=== PATIENT | female | born 1965 | race Caucasian/White ===

== ENCOUNTER 2019-11-02 07:33 | Outpatient (CLI) | payer BC, SELFPAY ==
--- NOTE | ~2019-11-02 | MM_ITS ---
EXAMINATION: MM screening john BI w teresa HISTORY: Screening mammogram TECHNIQUE: Craniocaudal and mediolateral oblique 3-D tomosynthesis images were obtained and synthetic 2-D images were generated. CAD analysis was submitted and interpreted. COMPARISON: Comparison to multiple prior studies sequentially, with oldest reviewed study dated 03/2014. BREAST PARENCHYMAL COMPOSITION: The breasts are heterogeneously dense, which may obscure small masses . FINDINGS: There is no evidence of suspicious mass, calcification, or architectural distortion to sugg est malignancy in either breast. There has been no suspicious interval change. IMPRESSION: 1. No mammographic evidence of malignancy. 2. Recommend routine screening mammography in one year. BI-RADS Category 1: Negative Reviewed, dictated and finalized at location A.
== END 2019-11-02 07:34 | disposition home or self-care (01) ==
DX: Z12.31 Encounter for screening mammogram for malignant neoplasm of breast (principal)
CPT/HCPCS: 77063; 77067

== ENCOUNTER 2022-10-17 09:20 | Emergency (ER) | payer BC, SELFPAY ==
[2022-10-17 09:45] VITALS: BP 130/89; PULSE 93; RESP 16; TEMP 36.8; O2SAT 100
--- NOTE | 2022-10-17 09:55 | ED.URI ---
HPI - URI/Sore Throat General Chief Complaint: Upper Respiratory Infection Stated Complaint: SORE THROAT/COLD Time Seen by Provider: 10/17/22 09:55 Source: patient Mode of arrival: ambulatory Limitations: no limitations History of Present Illness HPI Narrative: 57-year-old female presents with complaint of nasal congestion, sinus pressure and congestion for 3 weeks. Is not taking any [id number] medications to treat her symptoms. Reports the last 3 days she has had sore throat, fatigue and body aches. Afebrile. Denies nausea vomiting diarrhea. No chest pain or shortness of breath. All systems reviewed and negative except as noted above. Related Data Allergies Allergy/AdvReac Type Severity Reaction Status Date / Time No Known Allergies Allergy Verified 10/17/22 09:37 Review of Systems Review of Systems: CONSTITUTIONAL: Denies fever, chills, or sweats. Reports fatigue. EYES: Denies visual changes, redness, or discharge. ENT: Reports rhinorrhea, congestion,, sinus pressure sore throat. Denies otalgia. CARDIOVASCULAR: Denies chest pain, palpitations, or edema. RESPIRATORY: Denies cough or dyspnea. GASTROINTESTINAL: Denies abdominal pain, nausea, vomiting, or diarrhea. GENITOURINARY: Denies dysuria or hematuria. SKIN: Denies rash or itching. MUSCULOSKELETAL: Denies back pain, joint pain. Reports myalgia. NEUROLOGIC: Denies headache, numbness, or weakness. PSYCHIATRIC: Denies anxiety or depression. All other systems reviewed are negative, except as documented in HPI. PMFSH Past Medical History Medical History (Updated 10/17/22 @ 10:03 by Shannan Sanchez NP) Vaginal delivery Surgical History Surgical History (Updated 12/01/19 @ 14:24 by Mona Law CMA) History of hysterectomy Family History Family History (Updated 12/19/17 @ 14:36 by DOCTOR UNKNOWN) Mother Hypertension Grandparent Carcinoma of colon Family history of malignant neoplasm of breast Other Family history of arthritis Family history of malignant neoplasm Social History Social History Smoking status: Never smoker Second hand tobacco smoke exposure: No Alcohol intake: current Comments At time of signature, agree with nursing past medical, surgical, social and family history. There is no relevant family history pertinent to the presenting complaint. Exam Narrative: GENERAL: This is a well-nourished, well-developed patient, in no apparent distress. HEAD: normocephalic, atraumatic. EYES: PERRL. Sclera clear/white. Vision is grossly intact. EARS: External ears normal, auditory canals clear and without drainage, TMs normal without perforation. Hearing grossly intact. NOSE: External nose normal with prelim nasal drainage, moderate congestion, frontal and maxillary sinus tenderness. THROAT: Mucous membranes moist, erythema and postnasal drainage. NECK: Neck supple, non-tender without lymphadenopathy, masses or thyromegaly. CARDIOVASCULAR: Regular rate and rhythm without murmurs, gallops, or rubs. RESPIRATORY: Clear to auscultation. Breath sounds equal bilaterally. No wheezes, rales, or rhonchi. SKIN: warm, Dry, intact with no suspicious lesions or rash, good texture and turgor. NEURO: awake, alert, and oriented to person, place and time. There were no obvious focal neurologic abnormalities. EXTREMITIES: No joint tenderness, effusion, or edema noted. Course Course Level of Care: Express Care Visit Vital Signs Vital signs: Vital Signs Temperature 36.8 C 10/17/22 09:45 Pulse Rate 93 10/17/22 09:45 Respiratory Rate 16 10/17/22 09:45 Blood Pressure 130/89 10/17/22 09:45 Pulse Oximetry 100 10/17/22 09:45 Temperature 36.8 C 10/17/22 09:45 Pulse Rate 93 10/17/22 09:45 Respiratory Rate 16 10/17/22 09:45 Blood Pressure 130/89 10/17/22 09:45 Pulse Oximetry 100 10/17/22 09:45 Reviewed MDM - URI/Sore Throat MDM Narrative Medical decision making narrative: Patient i
== END 2022-10-17 10:08 | disposition home or self-care (01) ==
PROVIDERS: Emergency Provider Nurse Practitioner Family
DX: J01.90 Acute sinusitis, unspecified (principal); B96.89 Other specified bacterial agents as the cause of diseases classified elsewhere
CPT/HCPCS: 87081; 87880; 99213; G0463

== ENCOUNTER 2024-08-31 14:59 | Outpatient (CLI) | payer BC, SELFPAY ==
--- NOTE | ~2024-08-31 | MM_ITS ---
EXAMINATION: MM screening john BI w teresa HISTORY: Screening mammogram TECHNIQUE: Craniocaudal and mediolateral oblique 3-D tomosynthesis images were obtained and synthetic 2-D images were generated. CAD analysis was submitted and interpreted. COMPARISON: 11/02/2019 BREAST PARENCHYMAL COMPOSITION:Dense: The breasts are extremely dense, which lowers the sensitivity o f mammography. FINDINGS: No suspicious mass, calcification, or architectural distortion are identified in either lg ast to suggest malignancy. There has been no suspicious interval change. IMPRESSION: No mammographic evidence of malignancy. Recommend routine screening mammography in one year. BI-RADS Category 1: Negative Reviewed, dictated and finalized at location M. 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
== END 2024-08-31 15:00 | disposition home or self-care (01) ==
DX: Z12.31 Encounter for screening mammogram for malignant neoplasm of breast (principal)
CPT/HCPCS: 77063; 77067

== ENCOUNTER 2024-09-09 08:36 | Emergency (ER) | payer BC, SELFPAY ==
[2024-09-09 08:48] VITALS: BP 131/88; PULSE 71; RESP 16; TEMP 36.9; O2SAT 100
--- NOTE | 2024-09-09 08:56 | ED_ITS ---
HPI - Wound/Laceration General Chief Complaint: Wound/Laceration Stated Complaint: Cut Finger Time Seen by Provider: 09/09/24 08:49 Source: patient and RN notes reviewed Mode of arrival: ambulatory Limitations: no limitations History of Present Illness HPI narrative: Patient presents today with a laceration to her left 5th finger at the dorsum of the PIP. 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 She presents today because she cannot get the wound to stop bleeding. UTD on her tetanus vaccine. Denies numbness or tingling. Related Data Allergies Allergy/AdvReac Type Severity Reaction Status Date / Time No Known Allergies Allergy Verified 09/09/24 08:48 Review of Systems Review of Systems: CONSTITUTIONAL: Denies body aches, fever, chills, or sweats. EYES: Denies visual changes, redness, or discharge. ENT: Denies rhinorrhea, congestion, sore throat, or otalgia. CARDIOVASCULAR: Denies chest pain, palpitations, or edema. RESPIRATORY: Denies cough or dyspnea. GASTROINTESTINAL: Denies abdominal pain, nausea, vomiting, or diarrhea. GENITOURINARY: Denies dysuria or hematuria. SKIN: Denies rash, itching, or wounds. +Finger laceration MUSCULOSKELETAL: Denies back pain, joint pain, or myalgia. NEUROLOGIC: Denies headache, numbness, tingling, or weakness. PSYCH: Denies depression or anxiety. [facility] Past Medical History Medical History Vaginal delivery Surgical History Surgical History History of hysterectomy Family History Family History Mother Hypertension Grandparent Carcinoma of colon Family history of malignant neoplasm of breast Other Family history of arthritis Family history of malignant neoplasm Social History Social History Smoking status: Never smoker Second hand tobacco smoke exposure: No Alcohol intake: current Comments At time of signature, I have reviewed and agree with nursing past medical, surg ical, social and family history unless otherwise noted. Please see nursing chart for further information. There is no relevant family history pertinent to the presenting complaint Exam Narrative: GENERAL: Well-appearing, well-nourished, and in no acute distress. HEAD: Normocephalic, atraumatic. EYES: EOMI. No redness or drainage. Conjunctivae normal. ENT: Mucous membranes pink and moist. NECK: Normal AROM. CHEST: No respiratory distress. EXTREMITIES: 1 cm partial-thickness linear laceration to the dorsum the left 5th PIP with [id number] active bleeding. Distal sensation intact. Capillary refill normal. Full range of motion of the finger intact. SKIN: Warm, dry, no rash. Capillary refill normal. Normal skin turgor. NEURO: No focal deficits. Alert and oriented x3. Gait steady. PSYCH: Normal affect. No signs of depression or anxiety. Course Course Emergency Course: Area was dressed with Surgicel and a large Band-Aid. Splint applied for immobilization. Care instructions given. Level of Care: Express Care Visit Vital Signs Vital signs: Vital Signs Temperature 98.4 F 09/09/24 08:48 Pulse Rate 71 09/09/24 08:48 Respiratory Rate 16 09/09/24 08:48 Blood Pressure 131/88 09/09/24 08:48 Pulse Oximetry 100 09/09/24 08:48 Temperature 98.4 F 09/09/24 08:48 Pulse Rate 71 09/09/24 08:48 Respiratory Rate 16 09/09/24 08:48 Blood Pressure 131/88 09/09/24 08:48 Pulse Oximetry 100 09/09/24 08:48 Reviewed MDM - Wound/Laceration MDM Narrative Medical decision making narrative: Wound is not eligible for closure as it had been too long since initial injury. Patient is placed on Keflex to prevent infection. Surgicel applied to help with hemostasis. Care instructions given. Anticipatory guidance given. Differential Diagnosis Differential diagnosis: Likely laceration, abrasion and avulsion of skin Critical Care Time Critical Care Time Critical Care Time: No Discharge Plan Discharge Clinical Impression: Finger laceration Qualifiers: Encounter type: initial encounter Finger: index finger Damage to nail status: without damage Foreign body presence: without foreign body Laterality: left Qualified Code(s): S61.211A - Laceration without foreign body of left index finger without damage to nail, initial encounter Patient Disposition: Home, Self-Care Condition: Stable Instructions: Finger Laceration (ED) Additional Instructions: A dressing to help with the bleeding has been applied, followed by a finger splint. Please keep the dressing on for 3 days, then soak for 10-15 mins to soften the dressing before carefully removing. After removal, wash with soap and water daily and keep covered until fully scabbed over. Monitor for any signs of infection such as redness, swelling, increased pain or drainage, and see your doctor if you note any. Wear this finger splint to help prevent bending until fully scabbed as well. Take Tylenol or ibuprofen for pain if ne eded. Take the Keflex as prescribed to help prevent infection. Your blood pressure was elevated above 120/80 today at Urgent Care. This puts you above the threshold for follow up. Please schedule a followup visit with your personal physician as soon as possible, for further evaluation and treatment. Even blood pressure exceeding 120/80 may indicate pre-hypertension. Patient Language: Divehi Prescriptions: New cephalexin 500 mg capsule 500 mg PO Q6H 5 Days Qty: 20 0RF Follow-up/Referrals: PHYSICIAN,SIEBEL ADMINISTRATOR [Primary Care Provider] - Time of Disposition: 09:08
== END 2024-09-09 09:13 | disposition home or self-care (01) ==
PROVIDERS: Emergency Provider Nurse Practitioner
DX: S61.217A Laceration without foreign body of left little finger without damage to nail, initial encounter (principal); W26.8XXA Contact with other sharp object(s), not elsewhere classified, initial encounter
CPT/HCPCS: 29130; 99213; G0463

== ENCOUNTER 2025-06-20 11:18 | Emergency (ER) | payer BC, SELFPAY ==
[2025-06-20 11:34] VITALS: BP 137/86; PULSE 73; RESP 16; TEMP 36.5; O2SAT 100
--- NOTE | 2025-06-20 12:45 | ED.URI ---
HPI - URI/Sore Throat General Chief Complaint: Upper Respiratory Infection Stated Complaint: Cough Time Seen by Provider: 06/20/25 12:34 Source: patient and RN notes reviewed Mode of arrival: ambulatory Limitations: no limitations History of Present Illness HPI Narrative: 60-year-old female patient presents today with a 1 month history of nasal congestion, cough, postnasal drip. Cough does keep her awake at night at times. Denies shortness of breath, fever. No OTC treatment prior to arrival. No history of asthma or COPD. No recent antibiotic use. Related Data Home Medications ?Medication ?Instructions ?Recorded ?Confirmed ?Last Taken ?Type spironolactone 100 mg tablet 100 mg PO DAILY 06/13/25 06/20/25 Unknown History Allergies Allergy/AdvReac Type Severity Reaction Status Date / Time No Known Allergies Allergy Verified 06/20/25 11:35 PMFSH Past Medical History Medical History Vaginal delivery Surgical History Surgical History [place] teeth removed History of hysterectomy Family History Family History Mother Hypertension Grandparent Carcinoma of colon Family history of malignant neoplasm of breast Other Family history of arthritis Family history of malignant neoplasm Social History Social History Smoking status: Never smoker Second hand tobacco smoke exposure: No Alcohol intake: current Comments At time of signature, I have reviewed and agree with nursing past medical, surgical, social and family history unless otherwise noted. Please see nursing chart for further information. There is no relevant family history pertinent to the presenting complaint Exam Narrative: GENERAL: Mildly ill-appearing, well-nourished, and in no acute distress. HEAD: Normocephalic, atraumatic. EYES: EOMI. No redness or drainage. Conjunctivae normal. ENT: Mucous membranes pink and moist. Nares congested. No rhinorrhea. TMs normal bilaterally. Throat normal. Uvula midline. NECK: Normal AROM. Supple. No lymphadenopathy. CHEST: No respiratory distress. Clear to auscultation. Harsh cough noted. HEART: Regular rate and rhythm. No murmur appreciated. EXTREMITIES: Normal range of motion. No edema. SKIN: Warm, dry, no rash. Capillary refill normal. Normal skin turgor. NEURO: No focal deficits. Alert and oriented x3. Gait steady. PSYCH: Normal affect. No signs of depression or anxiety. Course Course Level of Care: Express Care Visit Vital Signs Vital signs: Vital Signs Temperature 97.7 F 06/20/25 11:34 Pulse Rate 73 06/20/25 11:34 Respiratory Rate 16 06/20/25 11:34 Blood Pressure 137/86 06/20/25 11:34 Pulse Oximetry 100 06/20/25 11:34 Oxygen Delivery Room Air 06/20/25 11:34 Temperature 97.7 F 06/20/25 11:34 Pulse Rate 73 06/20/25 11:34 Respiratory Rate 16 06/20/25 11:34 Blood Pressure 137/86 06/20/25 11:34 Pulse Oximetry 100 06/20/25 11:34 Oxygen Delivery Room Air 06/20/25 11:34 Reviewed MDM - URI/Sore Throat MDM Narrative Medical decision making narrative: 60-year-old female patient presents today with a 1 month history of nasal congestion, cough, postnasal drip. Cough does keep her awake at night at times. Upon exam, patient is congested with a harsh cough. Patient will be treated with a course of Augmentin and prednisone. She declined cough medicine and chest x-ray. Vital signs stable. Anticipatory guidance given. Differential Diagnosis Differential diagnosis: Likely upper respiratory infection, otitis media, sinusitis, bronchitis and other (Pneumonia) Critical Care Time Critical Care Time Critical Care Time: No Discharge Plan Discharge Clinical Impression: Bronchitis Sinusitis Qualifiers: Sinusitis location: unspecified location Chronicity: acute Recurrence: non-recurrent Qualified Code(s): J01.90 - Acute sinusitis, unspecified Patient Disposition: Home Condition: Stable Instructions: Antibiotic Form, Sinusitis (ED), Acute Bronchitis (ED) Additional Instructions: Please take all medications as prescribed. Rest and stay hydrated. Follow-up with your PCP in 3 days if symptoms are not improving. Patient Language: Peruvian Prescriptions: New prednisone 20 mg tablet 40 mg PO DAILY 5 Days Qty: 10 0RF amoxicillin-pot clavulanate 875-125 mg tablet 1 tablet PO Q12H 7 Days Qty: 14 0RF No Action spironolactone 100 mg tablet 100 mg PO DAILY Follow-up/Referrals: PHYSICIAN,CDL TRUCK DRIVER [Primary Care Provider, Internal Medicine] Time of Disposition: 12:49
== END 2025-06-20 12:52 | disposition home or self-care (01) ==
PROVIDERS: Emergency Provider Nurse Practitioner
DX: J40 Bronchitis, not specified as acute or chronic (principal); J01.90 Acute sinusitis, unspecified
CPT/HCPCS: 99213; G0463